=== PATIENT | female | born 1945 | race African-American/Black ===

== ENCOUNTER 2016-12-26 03:32 | Emergency (ER) | payer OTHER ==
[2016-12-26 02:48] LABS: BASOPHILS 0.2 %; BASOPHILS ABSOLUTE 0.01 10/3/uL (0.0-0.16); EOSINOPHILS 2.7 %; EOSINOPHILS ABSOLUTE 0.14 10/3/uL (0.0-0.53); ER CBC TAT 0 Hrs 05 Mins; HEMOGLOBIN 11.7 g/dL (12.0-16.0); IMMATURE GRANULOCYTES 0.2 %; IMMATURE GRANULOCYTES ABSOLUTE 0.01 10/3/uL (0.0-0.11); LYMPHOCYTES 45.3 %; LYMPHOCYTES ABSOLUTE 2.38 10/3/uL (0.67-4.30); MEAN CORPUS HGB CONC 32.9 g/dL (32.0-36.0); MEAN CORPUSCULAR HEMOGLOB 28.5 pg (26.0-34.0); MEAN CORPUSCULAR VOLUME 86.6 fL (80-100); MEAN PLATELET VOLUME 9.9 fL (9.2-13.0); MONOCYTES 13.5 %; MONOCYTES ABSOLUTE 0.71 10/3/uL (0.21-1.20); NEUTROPHILS 38.1 %; PLATELET COUNT 164 10/3/uL (150-400); RED CELL COUNT 4.11 10/6/uL (4.0-5.6); WHITE BLOOD CELLS 5.3 10/3/uL (4.5-10.5)
[2016-12-26 02:49] LABS: HEMATOCRIT 35.6 % (36.0-48.0); MANUAL DIFF NO %
[2016-12-26 02:54] LABS: PROTIME (NOT ORD) 13.1 SEC (12.0-14.5)
[2016-12-26 02:55] LABS: PARTIAL THROMBO TIME 23.8 SEC (22.5-37.2)
[2016-12-26 03:05] LABS: ALBUMIN 3.2 G/DL (3.5-5.0); ALKALINE PHOSPHATASE 62 U/L (45-117); BUN (BLOOD UREA NITROGEN) 11 MG/DL (6-23); CALCIUM, SERUM 8.5 MG/DL (8.5-10.4); CHEST PAIN PROFILE TAT 0 Hrs 22 Mins; CHLORIDE, SERUM 113 MMOL/L (96-112); CO2 (CARBON DIOXIDE) 25 MMOL/L (24-34); CREATININE 0.75 MG/DL (0.55-1.02); GFR AFRICAN AMERICAN 94 ML/MIN (>=60); GFR NON AFRICAN AMERICAN 81 ML/MIN (>=60); GLUCOSE, SERUM 103 MG/DL (60-99); POTASSIUM, SERUM 3.8 MMOL/L (3.5-5.3); SGOT(AST) 16 U/L (5-40); SGPT(ALT) 14 U/L (5-65); SODIUM, SERUM 146 MMOL/L (135-148); TOTAL BILIRUBIN 0.4 MG/DL (0-1.2); TOTAL PROTEIN 6.5 G/DL (6.0-8.5); TROPONIN I <0.02 NG/ML (<0.05)
[2016-12-26 03:07] LABS: DIRECT BILIRUBIN < 0.1 MG/DL (0.0-0.4); INDIRECT BILIRUBIN(NOT ORDER) 0.3 MG/DL (0.1-0.9)
[~2016-12-26 03:32] MED LIST: ASAB PO; ESTRACE1 MG PO; LOP25 PO; METOPROLOL PO; MULTIPLE VIT PO; NEXIUM PO; NEXIUM40 PO; PEP20 PO; PRIMPRO PO; TOPXL25 PO; VIT C PO; VIT D PO; VIT E PO; VITAMIN D1000 UNI1 PO
== END 2016-12-26 04:05 | disposition home or self-care (01) ==
LOC: ER 03:32
PROVIDERS: Specialist
DX: R10.13 Epigastric pain (principal); I10 Essential (primary) hypertension; Z88.8 Allergy status to other drugs, medicaments and biological substances; Z79.82 Long term (current) use of aspirin
CPT/HCPCS: 71010; 80048; 80076; 83690; 83735; 84484; 85025; 85610; 85730; 93005; 99285; A9270-GY